=== PATIENT | female | born 1980 | race Caucasian/White ===

== ENCOUNTER → 2016-05-03 | Outpatient (CLI) | payer BC ==
[~2016-05-03] MED LIST: CETI10TA84 PO; DOCU-94 PO; MONT1TAB3 PO; PREN-83
[2016-05-06 14:54] LABS: CHLAMYDIA TRACH RNA*** NOT DETECTED (NOT DETECTED); GC (NEIS GONORRHOEAE)RNA** NOT DETECTED (NOT DETECTED)
== END | disposition home or self-care (01) ==
LOC: C.LABSPEC 14:06
PROVIDERS: ATTEND Obstetrics & Gynecology
DX: O09.513 Supervision of elderly primigravida, third trimester (principal)

== ENCOUNTER → 2016-05-03 | Outpatient (CLI) | payer BC ==
[2016-05-03 12:28] LABS: BASO % 0.2 %; BASO ABS # 0.02 K/uL (0-0.2); COMPLETE YES; EOS % 1.9 %; HEMATOCRIT 38.4 % (37-47); IG% 0.3 %; LYMPH % 17.4 %; LYMPH ABS # 1.67 K/uL (1.2-3.4); MEAN CELL VOLUME 87.7 fL (80-100); MEAN CORPUSCULAR HEMOGLOBIN 31.3 pg (25-34); MEAN CORPUSCULAR HGB CONC 35.7 g/dl (32-36); MEAN PLATELET VOLUME 9.2 fL (7.4-10.4); MONO % 7.9 %; NEUT % 72.3 %; PLATELET COUNT 306 K/uL (130-400); RED BLOOD COUNT 4.38 M/uL (4.2-5.4)
== END | disposition home or self-care (01) ==
LOC: C.LAB1850 10:53
PROVIDERS: ATTEND Obstetrics & Gynecology
DX: O09.511 Supervision of elderly primigravida, first trimester (principal)

== ENCOUNTER → 2016-06-04 | Outpatient (CLI) | payer BC ==
--- NOTE | 2016-06-04 17:36 | DIAGNOSTIC IMAGING REPORT ---
RIGHT LOWER EXTREMITY VENOUS DOPPLER CLINICAL HISTORY: Right calf pain. COMPARISON STUDY: No previous studies for comparison. TECHNIQUE: Sonography of the deep venous system of the right lower extremity was performed. Compression and augmentation were evaluated. FINDINGS: The right common femoral, superficial femoral and popliteal veins were compressible. Augmentation was normal. Flow was shown within the deep calf vessels. IMPRESSION: No evidence of deep venous thrombus within the right lower extremity. Electronically signed by: Philip Villegas M.D. 06/04/2016 5:35 PM Dictated Date/Time: 06/04/2016 5:34 PM
== END | disposition home or self-care (01) ==
LOC: C.ULTR 16:35
PROVIDERS: ATTEND Obstetrics & Gynecology
DX: M79.661 Pain in right lower leg (principal)

== ENCOUNTER → 2016-06-30 | Outpatient (CLI) | payer OTHER ==
[2016-06-30 11:46] LABS: GTGD 50 Grams
[2016-06-30 13:26] LABS: URINE APPEARANCE CLEAR (CLEAR); URINE BILIRUBIN NEG (NEG); URINE COLOR YELLOW; URINE EPITHELIAL CELL AUTO >30 /lpf (0-5); URINE NITRITE NEG (NEG); URINE PH 6.5 (4.5-7.5); URINE SPECIFIC GRAVITY 1.016 (1.000-1.030); UROBILINOGEN NEG (NEG)
[2016-06-30 13:42] LABS: MANUAL MICROSCOPIC REQUIRED? NO; REVIEW REQ? NO
[2016-07-05 17:06] LABS: AFP CONCENTRATION 47.9 NG/ML; AFP MULTIPLE OF MEDIAN 1.55; AFPTS GESTATIONAL AGE 16.7 WEEKS; AFPTS INSULIN DEP DIABETIC? NO; AFPTS MATERNAL WT 187 LBS; ALPHA-FETOPROTEIN RACE CAUCASIAN=W; HISTORY OF NTD NO; REPEAT SAMPLE? NO
== END | disposition home or self-care (01) ==
LOC: C.LAB1850 10:00
PROVIDERS: ATTEND Obstetrics & Gynecology
DX: O09.512 Supervision of elderly primigravida, second trimester (principal); Z3A.00 Weeks of gestation of pregnancy not specified

== ENCOUNTER → 2016-09-23 | Outpatient (CLI) | payer OTHER ==
[2016-09-23 17:18] LABS: HEMATOCRIT 33.5 % (37-47)
[2016-09-23 17:39] LABS: GTGD 50 Grams
== END | disposition home or self-care (01) ==
LOC: C.LAB1850 16:05
PROVIDERS: ATTEND Obstetrics & Gynecology
DX: O09.513 Supervision of elderly primigravida, third trimester (principal)

== ENCOUNTER → 2016-09-23 | Outpatient (CLI) | payer OTHER ==
[2016-09-23 18:04] LABS: URINE APPEARANCE CLEAR (CLEAR); URINE BILIRUBIN NEG (NEG); URINE COLOR YELLOW; URINE EPITHELIAL CELL AUTO >30 /lpf (0-5); URINE NITRITE NEG (NEG); URINE SPECIFIC GRAVITY 1.013 (1.000-1.030); UROBILINOGEN NEG (NEG)
[2016-09-23 18:05] LABS: MANUAL MICROSCOPIC REQUIRED? NO; REVIEW REQ? NO
== END | disposition home or self-care (01) ==
LOC: C.LABSPEC 17:30
PROVIDERS: ATTEND Obstetrics & Gynecology
DX: O09.513 Supervision of elderly primigravida, third trimester (principal)

== ENCOUNTER → 2016-11-15 | Outpatient (CLI) | payer OTHER | END | disposition home or self-care (01) | LOC: C.LABSPEC 13:37 | PROVIDERS: ATTEND Obstetrics & Gynecology | DX: O09.513 Supervision of elderly primigravida, third trimester (principal); Z3A.00 Weeks of gestation of pregnancy not specified ==

== ENCOUNTER → 2016-11-16 | Outpatient (CLI) | payer OTHER ==
[2016-11-16 16:37] LABS: BASO % 0.2 %; BASO ABS # 0.03 K/uL (0-0.2); COMPLETE YES; EOS % 1.4 %; HEMATOCRIT 33.7 % (37-47); IG% 1.2 %; LYMPH % 16.9 %; LYMPH ABS # 2.05 K/uL (1.2-3.4); MEAN CELL VOLUME 90.8 fL (80-100); MEAN CORPUSCULAR HEMOGLOBIN 31.3 pg (25-34); MEAN CORPUSCULAR HGB CONC 34.4 g/dl (32-36); MEAN PLATELET VOLUME 9.5 fL (7.4-10.4); MONO % 10.4 %; NEUT % 69.9 %; PLATELET COUNT 248 K/uL (130-400); RED BLOOD COUNT 3.71 M/uL (4.2-5.4); WHITE BLOOD COUNT 12.12 K/uL (4.8-10.8)
[2016-11-16 16:56] LABS: URINE TOTAL PROTEIN 9.5 mg/dl (0-11.9)
[2016-11-16 16:59] LABS: ALT/SGPT 13 U/L (12-78); AST/SGOT 14 U/L (15-37); CREATININE 0.75 mg/dl (0.60-1.20); URIC ACID 5.1 mg/dl (2.6-7.2)
[2016-11-16 18:53] LABS: URINE TOTAL PROTEIN CALC 251.8 mg/24 hr (0-149.1)
== END | disposition home or self-care (01) ==
LOC: C.LAB1850 15:34
PROVIDERS: ATTEND Obstetrics & Gynecology
DX: R03.0 Elevated blood-pressure reading, without diagnosis of hypertension (principal)

== ENCOUNTER 2016-11-25 17:44 | Outpatient (CLI) | payer OTHER ==
[2016-11-25 19:34] LABS: INR 0.9 (0.9-1.1); PROTHROMBIN TIME (PATIENT) 9.5 SECONDS (9.0-12.0)
[2016-11-25 19:42] LABS: ALT/SGPT 12 U/L (12-78); AST/SGOT 16 U/L (15-37); CREATININE 0.71 mg/dl (0.60-1.20)
[2016-11-25 20:02] LABS: COMPLETE YES
[2016-11-25 20:28] LABS: BASO % 0.2 %; BASO ABS # 0.02 K/uL (0-0.2); EOS % 1.6 %; HEMATOCRIT 33.1 % (37-47); IG% 0.9 %; LYMPH % 19.6 %; LYMPH ABS # 2.09 K/uL (1.2-3.4); MEAN CELL VOLUME 88.5 fL (80-100); MEAN PLATELET VOLUME 9.3 fL (7.4-10.4); MONO % 9.6 %; NEUT % 68.1 %; PLATELET COUNT 214 K/uL (130-400); RED BLOOD COUNT 3.74 M/uL (4.2-5.4); WHITE BLOOD COUNT 10.68 K/uL (4.8-10.8)
== END 2016-11-25 20:24 | disposition home or self-care (01) ==
LOC: C.OPB 17:44 → C.LD 17:45 → C.OPB 20:24
PROVIDERS: ATTEND Obstetrics & Gynecology
DX: O99.89 Other specified diseases and conditions complicating pregnancy, childbirth and the puerperium (principal); R03.0 Elevated blood-pressure reading, without diagnosis of hypertension; Z3A.37 37 weeks gestation of pregnancy

== ENCOUNTER 2016-12-03 01:34 | Inpatient (IN) | payer OTHER ==
[~2016-12-03] VITALS: Ht 162.6 cm; Wt 98.6 kg
[2016-12-03] MEDS ORDERED: NURSING VERBAL MED ORDER ONE ×2 (02:45→14:15)
[2016-12-03 02:55] VITALS: Ht 162.6 cm; Wt 98.6 kg
[2016-12-03] MEDS ORDERED: DOCU-94 PO (02:59)
[2016-12-03] MEDS ORDERED: PREN-83 (02:59)
[2016-12-03] MEDS ORDERED: CETI10TA84 PO (02:59)
[2016-12-03] MEDS ORDERED: MONT1TAB3 PO (02:59)
[2016-12-03] MEDS ORDERED: LACTATED RINGER'S 1000ML 1,000 ML IV PRN (03:15)
[2016-12-03] MEDS ORDERED: LACTATED RINGER'S 1000ML 1,000 ML IV SCH (03:15)
[2016-12-03 03:24] LABS: HEMATOCRIT 34.4 % (37-47); MEAN CELL VOLUME 88.7 fL (80-100); MEAN CORPUSCULAR HEMOGLOBIN 31.4 pg (25-34); MEAN CORPUSCULAR HGB CONC 35.5 g/dl (32-36); MEAN PLATELET VOLUME 9.6 fL (7.4-10.4); PLATELET COUNT 209 K/uL (130-400); RED BLOOD COUNT 3.88 M/uL (4.2-5.4); WHITE BLOOD COUNT 16.21 K/uL (4.8-10.8)
[2016-12-03] MEDS ORDERED: BUPIVACAINE 0.25% 30 ML VIAL ONE (08:39)
[2016-12-03] MEDS ORDERED: EpHEDrine SULFATE INJ 50 MG/ML AMP ONE (08:40)
[2016-12-03] MEDS ORDERED: FENTANYL CITRATE INJ 50 MCG/1 ML 2 ML VIAL ONE (08:40)
[2016-12-03] MEDS ORDERED: FENTANYL 2MCG/ML ROPIV 1.25MG/ML 100ML BAG EPI ONE (08:40)
[2016-12-03] MEDS ORDERED: LACTATED RINGER'S 1000ML 500 ML IV PRN ×2 (09:24→10:47)
[2016-12-03] MEDS ORDERED: NALOXONE HCL INJ 1 MG in SODIUM CHLORIDE 0.9% 1000ML 1,000 ML IV PRN (09:24)
[2016-12-03] MEDS ORDERED: EpHEDrine SULFATE INJ 50 MG/ML AMP IV PRN (09:30)
[2016-12-03] MEDS ORDERED: NALOXONE HCL INJ 0.4 MG/1 ML VIAL/CARP IV PRN (09:30)
[2016-12-03] MEDS ORDERED: PROMETHAZINE HCL INJ 12.5 MG in SODIUM CHLORIDE 0.9% 50ML 50 ML IV PRN (09:30)
[2016-12-03] MEDS ORDERED: ONDANSETRON INJ 2 MG/ML 2 ML VIAL IV PRN (09:30)
[2016-12-03] MEDS ORDERED: DiphenhydrAMINE HCL 50 MG/ML VIAL IV PRN (09:30)
[2016-12-03] MEDS ORDERED: FENTANYL 2MCG/ML ROPIV 1.25MG/ML 100ML BAG EPI PRN (09:30)
[2016-12-03] MEDS ORDERED: NALBUPHINE HCL INJ 10 MG/ML AMP IV PRN (09:30)
[2016-12-03] MEDS ORDERED: OXYTOCIN 30 UNITS/500ML NSS IV PRN ×2 (11:00→16:45)
[2016-12-03] MEDS ORDERED: ACETAMINOPHEN 325 MG TAB PO PRN (16:45)
[2016-12-03] MEDS ORDERED: DIPHTHERIA/TETANUS/PERTUSSIS 0.5 ML SYR/VIAL IM. ONE (16:45)
[2016-12-03] MEDS ORDERED: ACETAMINOPHEN/CODEINE 300/30MG TAB PO PRN ×2 (16:45)
[2016-12-03] MEDS ORDERED: HYDROCORTISONE ACETATE 25 MG SUPP PR PRN (16:45)
[2016-12-03] MEDS ORDERED: SUPERCREAM 0.870 % 15GM JAR EXT PRN (16:45)
[2016-12-03] MEDS ORDERED: BENZOCAINE 20% AER SPR 82.5 GM CAN EXT PRN (16:45)
[2016-12-03] MEDS ORDERED: LANOLIN OINT EXT PRN ×2 (16:45)
--- NOTE | 2016-12-03 19:06 | Anesthesia Procedure Note ---
Anesthesia Epidural Removal Nt Date & Time Dec 03, 2016 at 19:06 Notes Mental Status: alert / awake / arousable, participated in evaluation Nausea / Vomiting: adequately controlled Pain: adequately controlled Airway Patency, RR, SpO2: stable & adequate BP & HR: stable & adequate Hydration State: stable & adequate Neuraxial Anesthesia: was administered Anesthetic Complications: no major complications apparent, pt satisfied with anesthetic care Epidural: removed without complications, with tip intact
[2016-12-03 19:36] VITALS: BP 128/77; PULSE 96; TEMP 36.8
[2016-12-03] MEDS: DOCUSATE SODIUM 100 MG CAP PO SCH (20:00)
[2016-12-03 23:31] VITALS: BP 114/65; PULSE 87; TEMP 37.2
[2016-12-04 04:00] VITALS: BP 118/73; PULSE 93; TEMP 36.6
[2016-12-04] MEDS: IBUPROFEN 600 MG TAB PO PRN ×2 (04:10→09:27)
[2016-12-04 06:51] LABS: HEMATOCRIT 30.9 % (37-47)
--- NOTE | 2016-12-04 07:14 | Progress Note ---
Subjective Dec 04, 2016. Subjective conversation w/ patient, physical exam Ambulation: ambulating normally Diet Tolerance: Regular Diet Feeding Type: Breast Feeding Objective Vital Signs Date Time Temp Pulse Resp B/P (MAP) Pulse Ox O2 Delivery O2 Flow Rate FiO2 12/04/16 04:00 36.6 93 18 118/73 (88) Room Air 12/03/16 23:33 Room Air 12/03/16 23:31 37.2 87 16 114/65 (81) Room Air 12/03/16 19:36 Room Air 12/03/16 19:36 36.8 96 20 128/77 (94) Room Air Physical Exam General Appearance: WELL-APPEARING, NO APPARENT DISTRESS Fundus: Firm, Non-Tender Extremities: no calf tenderness Laboratory Results Last 24 Hours Test 12/04/16 06:08 Hemoglobin 10.6 g/dL Hematocrit 30.9 % Assessment and Plan Post- Day#: 1 Continue Routine Care: - routine care doing well - routine care
[2016-12-04 07:47] VITALS: BP 113/70; PULSE 81; TEMP 36.6; O2SAT 98
[2016-12-04] MEDS ORDERED: DOCUSATE SODIUM 100 MG CAP PO SCH (08:00)
[2016-12-04] MEDS: CETIRIZINE HCL 10 MG TAB PO SCH (09:24)
[2016-12-04] MEDS: PRENATAL VITAMIN TAB PO SCH (09:24)
[2016-12-04] MEDS: MONTELUKAST SOD 10 MG TAB PO SCH (09:24)
[2016-12-04] MEDS: FERROUS SULFATE 325 MG TAB PO SCH (09:24)
[2016-12-04] MEDS: DOCUSATE SODIUM 100 MG CAP PO SCH ×2 (09:24→19:59)
--- NOTE | 2016-12-04 09:40 | DELIVERY SUMMARY ---
DATE OF OPERATION: 12/03/2016 DATE OF DELIVERY: 12/03/2016 FINDINGS: Viable with Apgars of 8 and 9. Baby delivered from a direct OP presentation over a midline second degree laceration. Cord blood samples obtained. Placenta delivered spontaneously. Estimated blood loss 300 mL. LABOR NOTE: The patient is a 36-year-old 1, para 0 with an EDC of 10 December who is admitted with spontaneous rupture of membranes. The patient states membranes ruptured with mild irregular contractions. The patient was evaluated during this for advanced maternal age. She had a panorama screen which was reassuring and she was followed per protocol with third trimester NSTs. Blood type show O positive, antibody negative, rubella immune, hepatitis B negative. She had a normal 1-hour Glucola x2 and a negative third trimester beta strep culture. The patient on admission was 3-4 cm dilated with gross rupture of membranes. The patient was nicki irregularly. heart rate tracing was category 1. The patient wished to ambulate to see if contractions would increase in intensity. She progressed to 6 cm over the next 4 hours but became exhausted and very uncomfortable. Anesthesia was consulted and an epidural was placed. Following placement of the epidural contractions spaced out and Pitocin augmentation was initiated. Over the next 4 hours the patient progressed to full dilatation. She labored down and her epidural rate was turned down so she could perceive the contractions. The patient began her second stage and pushed for a little over an hour delivering the viable female infant from an OP presentation. The cord was clamped and cut, cord blood samples obtained, placenta delivered spontaneously. Midline laceration was repaired with 4-0 and 2-0 Vicryl in a routine fashion. Estimated blood loss was 300 mL. Sponge and needle count was correct. I attest to the content of the Intraoperative Record and any orders documented therein. Any exception s are noted below.
[2016-12-04 11:51] VITALS: BP 118/76; PULSE 80; TEMP 36.8; O2SAT 98
[2016-12-04 16:30] VITALS: BP 118/70; PULSE 85; TEMP 37; O2SAT 99
[2016-12-04] MEDS ORDERED: BISACODYL 5 MG TABEC PO SCH (20:00)
[2016-12-05 00:10] VITALS: BP 118/75; PULSE 85; TEMP 36.6; O2SAT 97
[2016-12-05 06:48] LABS: HEMATOCRIT 34.5 % (37-47)
[2016-12-05] MEDS ORDERED: BISACODYL 10 MG SUPP PR PRN (07:00)
--- NOTE | 2016-12-05 07:38 | Progress Note ---
Subjective Dec 05, 2016. Subjective conversation w/ patient, physical exam, lab review Ambulation: ambulating normally Voiding: no voiding problems Diet Tolerance: Regular Diet Lochia: Small Feeding Type: Breast Feeding Pain: Controlled Objective Vital Signs Date Time Temp Pulse Resp B/P (MAP) Pulse Ox O2 Delivery O2 Flow Rate FiO2 12/05/16 00:10 36.6 85 20 118/75 (89) 97 Room Air 12/05/16 00:10 97 Room Air 12/04/16 16:30 37.0 85 16 118/70 (86) 99 Room Air 12/04/16 15:30 Room Air 12/04/16 11:51 36.8 80 16 118/76 (90) 98 Room Air 12/04/16 07:47 36.6 81 16 113/70 (84) 98 Room Air Physical Exam General Appearance: WELL-APPEARING, WD/WN, NO APPARENT DISTRESS Abdomen: non tender, soft Fundus: Firm, Non-Tender, Relation to Umbilicus (at u) Extremities: non-tender, normal inspection, + pedal edema (trace to +1) Laboratory Results Last 24 Hours Test 12/05/16 06:25 Hemoglobin 11.5 g/dL Hematocrit 34.5 % Assessment and Plan Post- Day#: 2 Continue Routine Care: Doing well. Plan d/c. Instructions given.
--- NOTE | 2016-12-05 07:39 | Discharge Instructions ---
Discharge Instructions Date of Service Dec 05, 2016. Admission Reason for Admission: LABOR Discharge Discharge Diagnosis / Problem: s/p vaginal delivery Discharge Goals Goal(s): Routine recovery after delivery Medications Continue Dispensed Medications: supercream, dermaplast, tucks, lansinoh Activity Recommendations Activity Limitations: per Instructions/Follow-up section . Instructions / Follow-Up Instructions / Follow-Up ACTIVITY RECOMMENDATIONS: * Gradual return to full activity over the next 2-3 weeks. * No lifting - nothing heavier than baby over the next 2-3 weeks. * Do not engage in vigorous exercise, sexual activity or sports until cleared by your physician. * Do not drive or operate any motorized equipment until cleared by your physician. * You may shower/bathe daily. MEDICATIONS: For discomfort or pain, you may use Acetaminophen (Tylenol), Ibuprofen (Advil), or Naproxen (Aleve) following the package directions. For constipation you may use Colace following the package directions. BREAST CARE: If you are not breast feeding: * Wear a supportive bra 24 hours a day for one to two weeks. * Avoid stimulating your breasts and nipples as much as possible during the first few weeks after delivery. * When taking a shower, have the warm water hit your back, not breasts. * When your breasts feel full, apply ice packs. Usually three to four times a day helps ease the discomfort. * Take a mild pain medication (Tylenol / Motrin) when you are uncomfortable. If breast feeding: * Use breast milk to lubricate nipples. Lansinoh cream may be used for sore nipples. You do not need to remove cream prior to breast feeding. If using a different brand of cream, check the label for directions regarding removal of cream prior to nursing. * Wear a supportive bra. * If having problems with breasts or breast feeding, call a python consultant or your health care provider. EPISIOTOMY CARE: After delivery, if you have an episiotomy (stitches), the following steps will ease discomfort and aid healing. * For the first 24 hours after delivery, place ice packs next to your episiotomy to help reduce swelling. * After the first 24 hour-period, sitz baths, either portable or in the tub, are suggested. A shower with a shower arm sprayed over the episiotomy may be comforting. * Maria C care should be done after each voiding and bowel movement. Squirt warm water from a plastic bottle over the perineum (region of the body between the anus and urinary opening) and pat dry. * Use Dermoplast to ease discomfort. Shake container. [place] directly over the episiotomy. Place a Tucks on a clean sanitary pad next to your episiotomy. SPECIAL CARE INSTRUCTIONS: When you are discharged from the hospital, it is important for you to follow the instructions listed below: * During the first week at home, you should be able to care for yourself and your baby. In addition, the usual light household activities are encouraged. * Limit your activities to the way you feel. Do not try to clean the house or move furniture. Be sensible. * If you actively engage in sports and have done so up until the time of your delivery, you may resume these activities as soon as you feel able. This may take up to one month or even longer. Use good judgment. * Continue to take your vitamins for at least six weeks after the of your baby. * Your diet need not be limited unless you were on a special diet before your delivery. Breast-feeding mothers need around 2500 calories per day and at least 64-80 ounces of fluid per day (8 to 10 glasses). * You should eat foods from the four major food groups. Crash diets or fad diets are to be avoided. Eating lean meats, fresh fruits and vegetables, low-fat dairy products, high fiber foods and a regular exercise program, will help you get back to your pre- weight without putting your health at risk. * Constipation is sometimes a problem after delivery. Take a mild laxative as needed. If breast feeding, Milk of Magnesia is acceptable to use. You may use a suppository or Fleets enema if no episiotomy. * A daily shower or tub bath is suggested. Be sure to thoroughly and gently dry the perineum. * A bloody vaginal discharge will usually continue until around four weeks post . A small amount of bleeding may continue for as long as six weeks. Vaginal discharge changes from the bright red bleeding after delivery to pink then brownish and finally yellowish-pink before becoming white and disappearing. * Bleeding may increase with activity. Your first period may come in 4-8 weeks. If you are breast feeding, your period may be delayed even longer. * Pease (sex) can begin whenever both you and your partner feel comfortable and do not have any form of genital infection. It is recommended that you wait at least six weeks for internal and external healing to occur. If you have questions, please talk to your health care practitioner. A condom should be used to prevent infection and . * Foreplay, gentle intercourse and lubrication is very important the first several times to prevent pain. A water-based lubricant such as K-Y jelly or Astroglide may be used. * If you have RH negative blood and your baby is RH positive, you will receive RHOGAM by injection prior to discharge. The nurse will give you a card to keep with you that has the date and place that you received RHOGAM after delivery. * During your care, you had a Rubella screen done to check for the presence of rubella antibodies in your blood. If your test was negative, you will receive a Rubella vaccine prior to discharge. This vaccine may cause a fever, soreness at the injection site and flu-like symptoms. If these symptoms persist, notify your health care practitioner. is not advised for one month after a Rubella vaccine. * Verbalizes understanding of car seat law as reviewed with patient nursing. * Car Seat hand-out given and reviewed with patient by nursing. * Shaken baby information reviewed with patient by nursing. Call you doctor if: * Heavy bleeding (saturating several pads an hour) or passing clots the size of your fist. * A fever >101 degrees F (38.3 degrees C) on two occasions four hours apart and /or chills. * Unusual pain in the pelvic or vaginal areas. * "Baby Blues" lasting longer than two weeks. If you have any questions or concerns, call your health care practitioner at . FOLLOW UP VISIT: * Please call the office at to schedule a 6 week examination. It is important you keep this appointment. It is important for you to make arrangements for either yearly or twice yearly check-ups thereafter. Current Hospital Diet Patient's current hospital diet: Regular OB Diet Discharge Diet Recommended Diet: Regular Diet Pending Studies Studies pending at discharge: no Medical Emergencies . Who to Call and When: Medical Emergencies: If at any time you feel your situation is an emergency, please call 911 immediately. . Non-Emergent Contact Non-Emergency issues call your: [employer] . . "Provider Documentation" section prepared by Radha Gerard. . VTE Core Measure Inpt VTE Proph given/why not?: Treatment not indicated
[2016-12-05 08:15] VITALS: BP 126/67; PULSE 82; TEMP 36.8
[2016-12-05] MEDS: FERROUS SULFATE 325 MG TAB PO SCH (11:56)
[2016-12-05] MEDS: CETIRIZINE HCL 10 MG TAB PO SCH (11:56)
[2016-12-05] MEDS: DOCUSATE SODIUM 100 MG CAP PO SCH (11:56)
[2016-12-05] MEDS: MONTELUKAST SOD 10 MG TAB PO SCH (11:56)
[2016-12-05] MEDS: PRENATAL VITAMIN TAB PO SCH (11:56)
[2016-12-05] MEDS: IBUPROFEN 600 MG TAB PO PRN (12:00)
[2016-12-05 12:15] VITALS: BP_DIAS 67; PULSE 82; TEMP 36.8
== END 2016-12-05 15:30 | disposition home or self-care (01) | DRG 775 ==
LOC: C.OPB 01:34 → C.LD 01:36 → C.OPB 02:48 → C.OBG 19:41
PROVIDERS: ADMIT Obstetrics & Gynecology; ATTEND Obstetrics & Gynecology
PROC: 10E0XZZ Delivery of Products of Conception, External Approach (ICD-10-PCS; principal; 2016-12-04)
PROC: 0KQM0ZZ Repair Perineum Muscle, Open Approach (ICD-10-PCS; principal; 2016-12-04)
DX: O70.1 Second degree perineal laceration during delivery (principal); O69.81X1 Labor and delivery complicated by cord around neck, without compression, fetus 1; O09.513 Supervision of elderly primigravida, third trimester; Z37.0 Single live birth; Z3A.39 39 weeks gestation of pregnancy

== ENCOUNTER → 2017-01-10 | Outpatient (CLI) | payer OTHER | END | disposition home or self-care (01) | LOC: C.PAPS 11:41 | PROVIDERS: ATTEND Obstetrics & Gynecology | DX: Z39.2 Encounter for routine postpartum follow-up (principal) ==